=== PATIENT | female | born 1975 | race Caucasian/White ===

== ENCOUNTER 2019-06-14 06:16 | Inpatient (IN) ==
[2019-06-14] MEDS ORDERED: Albuterol 2.5 MG/3 ML NEBULIZER IH ONE (06:40)
[2019-06-14] MEDS ORDERED: CeFAZolin Syr 2,000MG/20 ML 2,000 MG/20 ML SYRINGE IVPB ONE (06:40)
[2019-06-14] MEDS ORDERED: Acetaminophen IV 1,000 MG/100 ML INFUS..BTL IVPB ONE (06:41)
[2019-06-14] MEDS ORDERED: Ringers Solution, Lactated 1,000 ML IVC SCH ×2 (06:45→12:06)
[2019-06-14] MEDS ORDERED: Morphine Sulfate 2 MG/ML SYRINGE IVP PRN (07:05)
[2019-06-14] MEDS ORDERED: Gabapentin 300 MG CAPSULE PO ONE (07:05)
[2019-06-14] MEDS ORDERED: Ketorolac 30 MG/ML VIAL IVP ONE (07:05)
[2019-06-14] MEDS ORDERED: *HR* OxyCODONE Immed Rel 5 MG TABLET PO PRN (07:05)
--- NOTE | 2019-06-14 07:05 | Anesthesia Evaluation PreOp ---
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[employer] CARE History: Denies Any Significant HX Other Medical History: Denies Any Significant HX Anesthesia History: No Prior Anesthetic Complications, Past Anesthesia (multiple prior anesthetics without complication) Test: Negative Alcohol Use: occasionally Drug use: none Medications and Allergies OxyCODONE/APAP 10/325 [Percocet 10/325 MG] 1 each PO Q6HR PRN #36 tablet 01/08/17 [Rx] Allergy/AdvReac Type Severity Reaction Status Date / Time No Known Allergies Allergy Verified 10/25/15 09:18 - Meds/Allergy Pre-op Review Medications Reviewed: Yes Allergies Reviewed: Yes Beta Blockers on Current Med List: No Anesthesia Results - Imaging EKG: image reviewed (normal sinus) Anesthesia Exam Selected Entries 06/14/19 07:01 Temperature 98.5 F Pulse Rate 68 Respiratory Rate 18 Blood Pressure 142/92 O2 Sat by Pulse Oximetry 96 Weight: 94 kg. NPO (# of Hours): over 8 hours - HEENT Pupil (Motor): Pupils equal Mallampati: II Teeth: Normal Oral Opening: Greater than 3 - Cardiac Rhythm: Regular Murmur: None - Pulmonary Breath Sounds: bilateral Clear Respiratory Effort: Symmetrical Anesthesia Assess/Plan ASA Score: 2 Level of consciousness: Cooperative Anesthetic Plan: General Monitoring Plan: Standard Monitors Recovery Plan: PACU
[2019-06-14] MEDS ORDERED: *HR* Rocuronium Bromide 50 MG/5 ML VIAL ONE (07:06)
[2019-06-14] MEDS ORDERED: *HR* FentaNYL (PF) 100 MCG/2 ML VIAL ONE (07:06)
[2019-06-14] MEDS ORDERED: Lidocaine -MPF 2% 2 ML VIAL ONE (07:06)
[2019-06-14] MEDS ORDERED: *HR* Propofol 200 MG/20 ML VIAL IVP ONE (07:07)
[2019-06-14] MEDS ORDERED: *HR* Midazolam HCl 2 MG/2 ML VIAL ONE (07:07)
[2019-06-14] MEDS ORDERED: Lidocaine HCL 4 ML Topical Solution (Laryng-O-Jet Kit Sterile Pak) TP ONE (07:09)
[2019-06-14] MEDS ORDERED: Ondansetron 4 MG/2 ML VIAL ONE (07:14)
[2019-06-14] MEDS ORDERED: Dexamethasone 4 MG/ML VIAL ONE (07:14)
[2019-06-14] MEDS ORDERED: LIDOCAINE 1% PF 2 ML AMPUL ONE (07:18)
--- NOTE | 2019-06-14 07:25 | History & Physical Report ---
Date of Encounter: 06/14/19 Time of Encounter: 07:25 24 Hour HP Update - Instructions Instructions: If the History and Physical is less than 30 days old and was completed prior to A.M. admission and or procedure and has NOT been updated on calendar day of procedure please complete this update prior to performing procedure. - Update Patient reports changes in Medical Condition: No Changes in examination, assessment, or condition: No Changes in Medication: No Preop tests/diagnostics Reviewed: Yes Surgery Remains Indicated: Yes Consent for Planned Operative Procedure(s) Verified: Yes - Pre-Operative Checklist Preoperative Checklist Indicated: Yes Prophylactic Antibiotic Ordered: Yes Home Medications Include Beta Sally: No Is VTE Prophylaxis Indicated?: Yes
[2019-06-14] MEDS ORDERED: *HR* Vasopressin 20 UNIT/ML VIAL ONE (07:45)
[2019-06-14] MEDS ORDERED: Bupivacaine/EPI 1:200k 0.25%PF 30 ML VIAL ONE (07:45)
[2019-06-14] MEDS ORDERED: Ketorolac 30 MG/ML VIAL ONE (08:08)
[2019-06-14] MEDS ORDERED: Neostigmine Methylsulfate 3 MG/3 ML SYRINGE ONE (08:54)
[2019-06-14] MEDS ORDERED: *HR* HYDROMORPHONE 2 MG/ML VIAL ONE (10:49)
--- NOTE | 2019-06-14 11:19 | Operative Note ---
Date of procedure: 06/14/19 Pre-op diagnosis: Menorrhagia, Enlarged uterus, leiomyomo, dysmenorrhea, LUIS FERNANDO Post-op diagnosis: same Procedure: LAVH, bilateral salpingectomy Anesthesia: AMYA Surgeon: Murray Benson Was there an special ed assistant present: Yes Visual Associate: Martine Gupta Visual Associate Other: philip Estimated blood loss (cc): 200 Specimen: Uterus, cervix, bilateral tubes Condition: stable Disposition: PACU Procedure in Detail: Patient was taken to the operating room placed in supine position and a general anesthetic was administered. She was then placed in modified dorsal lithotomy position skin was prepped and draped in usual sterile fashion. A timeout procedure was performed. An examination under anesthesia was then performed noting an enlarged uterus consistent with ultrasound findings. Given her obstetrical history it was decided to proceed with a attempted LAVH. A weighted speculum was placed in the vagina and the anterior lip of cervix was grasped with a single-tooth tenaculum. A uterine manipulator was then inserted. Next the skin incisions were infiltrated with 0.25% Marcaine with epinephrine. A transverse infraumbilical incision was then performed. A blameless trocar was inserted under direct visualization and the abdomen was insufflated with carbon monoxide gas. 2 lateral trochars were then inserted. Uterus tubes and ovaries as well as bilateral ureters were visualized. The uterus was noted to be large and bulky consistent with the ultrasound findings of a fibroid uterus. There appeared to be enough room bilaterally with visualization of the broad ligament to proceed with an LAVH. First I used the LigaSure device to transect the right mesosalpinx. This was then carried through the right utero-ovarian ligament and round ligament. I then created a bladder flap around to the midline. The uterine vessels were then coagulated with the LigaSure device. Next Dr. Solis did the same procedure on the left side of the uterus. She completed the bladder flap and then using sharp dissection the bladder flap was continued distally. She then proceeded to use a LigaSure device to transect the uterine vessels taking the pedicles down inferiorly to the lower uterine segment. Robert lackey completed the portion on the right side transecting the uterine vessels and again carrying the pedicles down to the level of the lower uterine segment. At this point there was some bleeding noted from the uterine surface where a bladder flap was created. Attempts to control this were unsuccessful and since the bleeding was small decided to proceed with the vaginal portion of the surgery. The carbon monoxide gas was allowed to escape and the laparoscope was removed. The vaginal portion of surgery was then performed. The paracervical tissues were infiltrated with a dilute Pitressin solution. A circumferential cervical incision was then performed and the vaginal mucosa was then bluntly dissected away. A posterior and then an anterior colpotomy was performed. The uterosacral and cardinal ligaments were clamped cut and ligated with 0 Vicryl suture. Eventually the uterus was free of all attachments but due to the size it would not pass through the vaginal opening. We then proceeded to do a rather extensive debulking of the uterus that took approximately 30 minutes. Once the volume of the uterus was decreased were able to remove it through the vagina. There was some oozing from the pedicle sites bilaterally that were controlled with 3-0 Vicryl suture in an interrupted [id number] fashion. Eventually good hemostasis from all pedicle sites was achieved. The posterior edge of the vaginal incision was then closed with 0 Vicryl suture in a running locking fashion. Incorporating both the peritoneum and the vaginal mucosa. The vaginal cuff was then closed anterior and posteriorly with 0 Vicryl suture in a running locking fashion starting at the lateral margins and meeting in the midline. Next #2 small lacerations noted on the vaginal mucosa below the urethra that were repaired with 3-0 Vicryl suture in a [id number] fashion. Good hemostasis was then present. The laparoscope was then reinserted in the abdominal cavity insufflated with carbon dioxide gas. Was a little bit of oozing noted from the left pedicle site that was controlled with the LigaSure device. The pelvic cavity was then irrigated with sterile water and Good hemostasis was then present. Hattie was then applied to all raw edges. Peristalsis was noted from both ureters. Once again the gas was allowed to escape the trochars were removed under direct visualization. Skin incisions were closed with 3-0 Vicryl suture in an interrupted subcuticular fashion. Patient tolerated procedure well, all sponge needle and instrument counts reported as correct. Assessment blood loss was 200 mL, the urine in the Garcia catheter was clear and yellow, and she was taken to recovery room in stable condition.
[2019-06-14] MEDS ORDERED: Naloxone 0.4 MG/ML INJ IVP PRN (12:06)
[2019-06-14] MEDS ORDERED: Ringers Solution, Lactated 1,000 ML ONE (12:10)
[2019-06-14] MEDS: *HR* OxyCODONE/APAP 5/325 TABLET PO PRN ×2 (14:30→18:27)
[2019-06-14] MEDS: Ibuprofen 600 MG TABLET PO PRN ×2 (14:30→20:59)
--- NOTE | 2019-06-14 16:04 | Anesthesia Evaluation Post Op ---
Date of Encounter: 06/14/19 Time of Encounter: 11:55 - Discharge PostOp Status: Transfer Patient to floor (Patient's vital signs have been reviewed. Patient is stable postoperatively and has adequately recovered from anesthesia. Patient is determined to have stable airway patency and respiratory function including respiratory rate and oxygen saturation. Patient has a stable heart rate, blood pressure and adequate hydration. Patients mental status is acceptable. Patients temperature is appropriate. Pain and nausea are adequately controlled)
[2019-06-14] MEDS ORDERED: amLODIPine 5 MG TABLET PO SCH (18:00)
[2019-06-14] MEDS ORDERED: Mesalamine 250 MG CAPSULE.ER PO SCH (18:00)
[2019-06-14] MEDS ORDERED: Gabapentin 400 MG CAPSULE PO SCH (21:00)
[2019-06-15] MEDS: *HR* OxyCODONE/APAP 5/325 TABLET PO PRN (00:31)
--- NOTE | 2019-06-15 06:36 | Discharge Summary ---
Date of Encounter: 06/15/19 Time of Encounter: 06:36 - Discharge Diagnosis (1) Leiomyoma of body of uterus Priority: Primary Status: Resolved (2) Enlarged uterus Priority: Secondary Status: Resolved (3) Menorrhagia with regular cycle Priority: Secondary Status: Resolved (4) Dysmenorrhea Priority: Secondary Status: Resolved - Discharge Medications Prescriptions: New Docusate [Colace] 100 mg PO BID capsule Ibuprofen [Motrin] 600 mg PO Q6HR PRN #30 tablet PRN Reason: Mild Pain OxyCODONE/APAP 5/325 [Percocet 5/325 MG] 1 each PO Q4HR PRN 7 Days #20 tablet PRN Reason: Severe Pain (7-10) Continued Cholecalciferol (Vitamin D3) [Vitamin D3] 1,000 units PO DAILY Vitamin B Complex/Folic Acid [Super B Maxi Complex Caplet] 0.4 mg PO DAILY Turmeric Root Extract [Turmeric] 500 mg PO DAILY FLUoxetine HCl [Prozac] 40 mg PO QAM Amlodipine Besylate 10 mg PO QPM Pramipexole [Mirapex] 0.25 mg PO HS Gabapentin [Neurontin] 1,200 mg PO HS Mesalamine [Apriso] 1.5 gm PO QPM Vitamin E 1,000 units PO DAILY Discontinued Tranexamic Acid [Lysteda] 650 mg PO Q8H Ferrous Sulfate 325 mg PO QAM Home Medications: Amlodipine Besylate 10 mg PO QPM 06/14/19 [History] Cholecalciferol (Vitamin D3) [Vitamin D3] 1,000 units PO DAILY 06/14/19 [History] FLUoxetine HCl [Prozac] 40 mg PO QAM 06/14/19 [History] Gabapentin [Neurontin] 1,200 mg PO HS 06/14/19 [History] Mesalamine [Apriso] 1.5 gm PO QPM 06/14/19 [History] Pramipexole [Mirapex] 0.25 mg PO HS 06/14/19 [History] Turmeric Root Extract [Turmeric] 500 mg PO DAILY 06/14/19 [History] Vitamin B Complex/Folic Acid [Super B Maxi Complex Caplet] 0.4 mg PO DAILY 06/14/19 [History] Vitamin E 1,000 units PO DAILY 06/14/19 [History] Docusate [Colace] 100 mg PO BID capsule 06/15/19 [Rx] Ibuprofen [Motrin] 600 mg PO Q6HR PRN #30 tablet 06/15/19 [Rx] OxyCODONE/APAP 5/325 [Percocet 5/325 MG] 1 each PO Q4HR PRN 7 Days #20 tablet 06/15/19 [Rx] Allergies/Adverse Reactions: Allergy/AdvReac Type Severity Reaction Status Date / Time No Known Allergies Allergy Verified 06/14/19 07:29 Date of admission: 06/14/19 11:59 Primary care physician: Montse Lane [employer]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 Discharging clinician: Murray Benson Anticipated date of discharge: 06/15/19 - Patient Status Disposition: Home, Self-Care Condition: Good Functional capacity at discharge: independent ambulation Overall status at discharge: patient is progressing back to baseline - Discharge Instructions Follow Up With: Murray Benson DO [Partnered Physician] - - Diet and Activity Activity: increase activity as tolerated Diet: advance to your usual diet 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 Do not lift anything weighing more than a gallon of milk for four weeks. Avoid intercourse for four weeks Exam - Constitutional Vitals: Temp Pulse Resp BP Pulse Ox 98.4 F 74 14 110/67 96 06/15/19 04:15 06/15/19 04:15 06/15/19 04:15 06/15/19 04:15 06/15/19 04:15 General appearance IM: A&O X 3, pleasant, no acute distress - Respiratory Respiratory exam: Absent: respiratory distress - Cardiovascular Cardiovascular exam IM: Absent: irregular rhythm - GI/Abdominal GI/Abdominal exam IM: normal bowel sounds Incision: normal, dry, intact - Extremities Exam Extremities exam IM: Absent: calf tenderness - VTE Documentation of Mechanical Device: Intermittent pneumatic compression device
[2019-06-15 07:04] LABS: Basophils % 0.4 %; Eosinophils % 0.3 %; Hematocrit 32.4 % (35.3-44.9); Hemoglobin 10.7 g/dL (11.5-15.4); Immature Granulocytes % 0.6 % (0-4); Lymphocytes # 2.4 K/mcL (0.6-4.6); Lymphocytes % 21.7 %; Mean Corpuscular Hemoglobin 31.9 pg (28.0-33.3); Mean Corpuscular Volume 96.7 fL (83.0-100.0); Mean Platelet Volume 9.7 fL (9.4-12.4); Monocytes % 8.8 %; Neutrophils # 7.5 K/mcL (1.6-8.9); Platelet Count 284 K/mcL (140-400); Red Blood Count 3.35 M/mcL (3.82-4.97); Red Cell Distribution Width 13.2 % (11.5-14.5); Segmented Neutrophils % 68.2 %
[2019-06-15 07:20] LABS: eGFR For African Americans > 60 (> 60); eGFR For Non-African Americans > 60 (> 60)
[2019-06-15 07:39] VITALS: BP 118/77
[2019-06-15] MEDS ORDERED: FLUoxetine 20 MG CAPSULE PO SCH (09:00)
== END 2019-06-15 09:33 | disposition home or self-care (01) | DRG 743 ==
LOC: SAMDAY 06:16 → 1NENUOBS 11:59